=== PATIENT | male | born 1940 | race Caucasian/White ===

== ENCOUNTER 2017-07-22 15:15 | Emergency (ER) | payer MEDICARE, OTHER ==
[2017-07-22 15:16] VITALS: BMI 28.3
--- NOTE | 2017-07-22 15:43 | ED PDOC ---
HPI: General Adult Time Seen by Provider: 07/22/17 15:30 Chief Complaint (Nursing): Dental Pain Chief Complaint (Provider): Jaw pain History Per: [employer] (Brother in-law) History/Exam Limitations: no limitations Onset/Duration Of Symptoms: Days (x 2) Current Symptoms Are (Timing): Still Present Additional History Per: Patient Additional Complaint(s): Mina Glasgow is a 77 y/o male with a past medical history of hypertension, presenting to the ED for evaluation of jaw pain, onset yesterday. He reports that yesterday he had become very angry, and had an episode of constant jaw pain , right-sided, lasting 2-3 minutes. He describes having similar pain in the past , always associated with anger. Earlier today he was not angry and had a similar episode lasting 2-3 minutes. Since then, he has had pain with jaw movement and especially while eating. States his only medication is metoprolol. PMD: Provider TBD Past Medical History Reviewed: Historical Data, Nursing Documentation, Vital Signs Vital Signs: Last Vital Signs Temp 98.0 F 07/22/17 21:16 Pulse 65 07/22/17 21:16 Resp 20 07/22/17 21:16 BP 135/85 07/22/17 21:16 Pulse Ox 99 07/22/17 21:21 - Medical History PMH: HTN - Surgical History Other surgeries: Brain surgery 8 months ago - Family History Family History: States: Unknown Family Hx - Home Medications Home Medications: Ambulatory Orders Medication Instructions Recorded No Known Home Med 07/22/17 - Allergies Allergies/Adverse Reactions: Allergies Allergy/AdvReac Type Severity Reaction Status Date / Time No Known Allergies Allergy Verified 04/30/13 08:17 Review of Systems ROS Statement: Except As Marked, All Systems Reviewed And Found Negative ENT: Positive for: Other (Jaw pain) Physical Exam - Reviewed Nursing Documentation Reviewed: Yes Vital Signs Reviewed: Yes - Physical Exam Appears: Positive for: Well, Non-toxic, No Acute Distress Head Exam: Positive for: ATRAUMATIC, NORMAL INSPECTION, NORMOCEPHALIC Skin: Positive for: Normal Color, Warm, Dry Eye Exam: Positive for: Normal appearance ENT: Positive for: Other (Gumline palpated, no tenderness. Able to clench teeth , no muscular deficits.) Neck: Positive for: Normal Respiratory: Negative for: Respiratory Distress Neurologic/Psych: Positive for: Alert, Oriented. Negative for: Motor/Sensory Deficits - Laboratory Results Result Diagrams: 07/22/17 16:10 07/22/17 16:10 - ECG O2 Sat by Pulse Oximetry: 99 (RA) Pulse Ox Interpretation: Normal Medical Decision Making Medical Decision Making: Time: 15:51 Initial Plan: --Discussed case with Dr. Blanco, patient will be transferred to bed w/ monitor for remainder of work up --Ordered EKG --Patient will be placed on continuous lunchroom monitor --BMP --B-type natriuretic peptide --Troponin I --CBC --PTT --Prothrombin time --Chest X-Ray --POC blood glucose TIME: 17:13 CHEST X-RAY: FINDINGS: LUNGS: No active pulmonary disease. PLEURA: No significant pleural effusion identified. No pneumothorax apparent. CARDIOVASCULAR: Cardiomegaly. No evidence of acute, significant cardiovascular disease. OSSEOUS STRUCTURES: No significant abnormalities. VISUALIZED UPPER ABDOMEN: Normal. OTHER FINDINGS: None. IMPRESSION: No active disease. --Labs reviewed, and are grossly normal. Pro-BNP is wnl. Troponin is negative. Time: 17:40 --Repeat Troponin I stat Time: 21:19 --Troponin negative on repeat labwork. Upon reevaluation, patient reports feeling better. Upon provider reevaluation patient is medically stable, and requires no further treatment in the ED at this time. Counseling was provided and all questions were answered regarding diagnosis and need for follow up with PMD. There is agreement to discharge plan. Return if symptoms persist or worsen. Scribe Attestation: Documented by Jazmín Estrada, acting as a scribe for Melissa Hanks PA-C Provider Scribe Attestation: All medical record entries made by the Scribe were at my direction and personally dictated by me. I have reviewed the chart and agree that the record accurately reflects my personal performance of the history, physical exam, medical decision making, and the department course for this patient. I have also personally directed, reviewed, and agree with the discharge instructions and disposition. Disposition - Clinical Impression Clinical Impression: Jaw pain - Disposition Disposition: Routine/Home Disposition Time: 21:20 Condition: STABLE Instructions: Temporomandibular Disorder (ED) Forms: [facility] (Italian) Print Language: ESTONIAN
[2017-07-22 16:15] LABS: BASO % 0.6 % (0.0-2.0); EOS # 0.2 K/uL (0.0-0.7); EOS % 2.9 % (0.0-4.0); HEMATOCRIT 44.9 % (35.0-51.0); LYMPH # 2.7 K/uL (1.0-4.3); LYMPH % 36.8 % (20.0-40.0); MEAN CELL VOLUME 88.7 fl (80.0-94.0); MEAN CORPUSCULAR HEMOGLOBIN 29.6 pg (27.0-31.0); MEAN CORPUSCULAR HGB CONC 33.4 g/dL (33.0-37.0); MEAN PLATELET VOLUME 7.1 fl (7.2-11.7); MONO # 0.7 K/uL (0.0-0.8); MONO % 8.8 % (0.0-10.0); NEUT # 3.8 K/uL (1.8-7.0); NEUT % 50.9 % (50.0-75.0); NRBC % 0.1 % (0.0-0.0); WHITE BLOOD COUNT 7.5 K/uL (4.8-10.8)
[2017-07-22 16:24] LABS: BLOOD UREA NITROGEN 23 mg/dl (9-20); CALCIUM 9.5 mg/dL (8.4-10.2); CARBON DIOXIDE 26 mmol/L (22-30); GFR AFRICAN-AMERICAN > 60; GLUCOSE,RANDOM 119 mg/dL (75-110); POTASSIUM 4.7 MMOL/L (3.6-5.0); SODIUM 146 mmol/l (132-148)
[2017-07-22 16:26] LABS: CHLORIDE 108 mmol/L (98-107)
[2017-07-22 16:33] LABS: PARTIAL THROMBOPLASTIN TIME 28.3 Seconds (25.6-37.1)
--- NOTE | 2017-07-22 17:15 | RAD ---
HISTORY: right jaw pain, hx hypertesion COMPARISON: No prior. TECHNIQUE: Chest PA and lateral FINDINGS: LUNGS: No active pulmonary disease. PLEURA: No significant pleural effusion identified. No pneumothorax apparent. CARDIOVASCULAR: Cardiomegaly. No evidence of acute, significant cardiovascular disease. OSSEOUS STRUCTURES: No significant abnormalities. VISUALIZED UPPER ABDOMEN: Normal. OTHER FINDINGS: None. IMPRESSION: No active disease. Please note: No preliminary report/ innterpretation of this examination provided by emergency department personnel.
[2017-07-22 21:18] VITALS: BP 135/85; PULSE 65; RESP 20; TEMP 98
[2017-07-22 21:21] VITALS: O2SAT 99
--- NOTE | 2017-07-23 12:45 | CARD ---
APPROVED REPORT EKG Measurement Heart [id number] <Conclusion> Normal sinus rhythm Right bundle branch block Abnormal ECG
== END 2017-07-22 21:31 | disposition home or self-care (01) ==
LOC: H.ER 15:15
DX: R68.84 Jaw pain (principal)